=== PATIENT | female | born 1990 | race Two or more races ===

== ENCOUNTER 2018-10-17 20:43 | Emergency (ER) | payer MEDICAID ==
[~2018-10-17] VITALS: Ht 152.4 cm; Wt 72.9 kg
[2018-10-17] MEDS ORDERED: IPRATROPIUM BROMIDE (0.02%) 0.5MG/2.5ML NEB HHN STA (22:08)
[2018-10-17] MEDS ORDERED: PREDNISONE 20MG TABLET PO STA (22:08)
[2018-10-17] MEDS ORDERED: ALBUTEROL (0.083%) 2.5MG/3ML NEB HHN STA (22:08)
[2018-10-18] MEDS ORDERED: ALBUTEROL (0.083%) 2.5MG/3ML NEB HHN STA (00:05)
[2018-10-18 01:14] VITALS: BP 108/67
== END 2018-10-18 01:15 | disposition home or self-care (01) ==
LOC: ER 20:43
DX: O99.511 Diseases of the respiratory system complicating pregnancy, first trimester (principal); Z3A.11 11 weeks gestation of pregnancy
CPT/HCPCS: 36415; 76801; 84702; 94640; 94644; 99285; J7512; J7611

== ENCOUNTER 2020-02-23 02:46 | Emergency (ER) | payer MEDICAID ==
[~2020-02-23] VITALS: Ht 152.4 cm; Wt 68.0 kg
[2020-02-23] MEDS ORDERED: ALBUTEROL (0.5%) 2.5MG/0.5ML NEB HHN ONE (03:15)
[2020-02-23] MEDS ORDERED: ALBUTEROL (0.083%) 2.5MG/3ML NEB ONE (04:07)
[2020-02-23 05:48] VITALS: BP 126/76
== END 2020-02-23 05:51 | disposition home or self-care (01) ==
LOC: ER 02:46
DX: J45.901 Unspecified asthma with (acute) exacerbation (principal); Z98.890 Other specified postprocedural states
CPT/HCPCS: 94640; 99283; Z7610

== ENCOUNTER 2021-04-14 21:44 | Inpatient (IN) | payer MEDICAID, OTHER ==
[~2021-04-14] VITALS: Ht 152.4 cm; Wt 80.7 kg
[~2021-04-14 21:44] MED LIST: ALBU18HF2 IH; FLUT1DIS3 INH; P20 MT
[2021-04-14] MEDS ORDERED: METHYLPREDNISOLONE SOD SUCC 125 MG/2 ML VIAL IV STA (22:14)
[2021-04-14] MEDS ORDERED: IPRATROPIUM BROMIDE (0.02%) 0.5MG/2.5ML NEB HHN STA (22:14)
[2021-04-14] MEDS ORDERED: SODIUM CHLORIDE 0.9% 1000ML BAG (SEPSIS BOLUS) IV ONE (22:15)
[2021-04-14] MEDS ORDERED: ACETAMINOPHEN 325MG TABLET PO ONE (22:30)
[2021-04-14 23:12] LABS: BASOPHILS % 0.6 % (0.0-2.0); EOSINOPHILS % 9.1 % (0.0-5.0); HEMATOCRIT. 38.6 % (36.0-48.0); HEMOGLOBIN. 13.9 g/dL (12.0-16.0); LYMPHOCYTES % 27.5 % (20.0-50.0); MEAN CORPUSCULAR HEMOGLOBIN 31.2 pg (28.0-32.0); MEAN CORPUSCULAR VOLUME 86.9 fL (81.0-99.0); MONOCYTES % 6.3 % (2.0-8.0); NEUTROPHILS % 56.5 % (40.0-76.0); PLATELET 344 x1000/uL (130-400); RED BLOOD CELL COUNT 4.44 mill/uL (4.2-5.4); RED CELL DISTRIBUTION WIDTH 12.7 % (11.6-14.6)
[2021-04-14 23:15] LABS: CLARITY URINE CLEAR (CLEAR); COLOR URINE YELLOW (YELLOW); KETONES URINE NEGATIVE (NEGATIVE); LEUKOCYTE ESTERASE URINE NEGATIVE (NEGATIVE); NITRITE URINE NEGATIVE (NEGATIVE); OCCULT BLOOD URINE NEGATIVE (NEGATIVE); PH URINE 6.5 (4.5-8.0); PROTEIN URINE NEGATIVE (NEGATIVE); SPECIFIC GRAVITY URINE 1.024 (1.005-1.030)
[2021-04-14] MEDS: ALBUTEROL (0.083%) 2.5MG/3ML NEB HHN SCH ×2 (23:20→23:30)
[2021-04-14 23:23] LABS: PROTHROMBIN TIME 10.3 sec (9.6-11.0)
[2021-04-14 23:26] LABS: CHLORIDE 108 mEq/L (98-107)
[2021-04-14 23:45] LABS: HCG SCREEN NEGATIVE
[2021-04-15] MEDS ORDERED: ALBUTEROL (0.083%) 2.5MG/3ML NEB HHN STA (00:48)
[2021-04-15] MEDS ORDERED: PREDNISONE 10MG TABLET PO SCH (09:45)
[2021-04-15] MEDS: CETIRIZINE 10MG TABLET PO SCH (10:32)
[2021-04-15] MEDS: IPRATROPIUM/ALBUTEROL 0.5-3(2.5)MG/3ML NEB HHN SCH ×2 (12:10→18:00)
[2021-04-15] MEDS: METHYLPREDNISOLONE SOD SUCC 40 MG/ML VIAL IV SCH ×2 (13:16→22:55)
[2021-04-15] MEDS ORDERED: MONTELUKAST SODIUM 10MG TABLET PO SCH (17:00)
[2021-04-15] MEDS ORDERED: ONDANSETRON HCL 4MG/2ML INJ IV PRN (17:45)
[2021-04-15] MEDS ORDERED: FAMOTIDINE 20MG TABLET PO SCH (21:00)
[2021-04-16 01:00] VITALS: BP 102/90
[2021-04-16] MEDS ORDERED: IPRATROPIUM/ALBUTEROL 0.5-3(2.5)MG/3ML NEB HHN PRN (01:30)
[2021-04-16] MEDS ORDERED: FLUTICASONE/VILANTEROL 200-25 BLST.W.DEV ORI SCH (01:30)
[2021-04-16 04:00] VITALS: BP 106/47
[2021-04-16] MEDS: METHYLPREDNISOLONE SOD SUCC 40 MG/ML VIAL IV SCH ×2 (05:12→13:54)
[2021-04-16 08:00] VITALS: BP 102/55
[2021-04-16] MEDS ORDERED: BUDESONIDE 0.5MG/2ML NEB HHN SCH (09:00)
[2021-04-16] MEDS ORDERED: FAMOTIDINE 20MG TABLET PO SCH (09:00)
[2021-04-16] MEDS: CETIRIZINE 10MG TABLET PO SCH (09:22)
[2021-04-16] MEDS: IPRATROPIUM/ALBUTEROL 0.5-3(2.5)MG/3ML NEB HHN SCH ×2 (10:00→16:50)
[2021-04-16] MEDS ORDERED: P20 MT (11:45)
[2021-04-16] MEDS ORDERED: BENZ-16 MT (11:46)
[2021-04-16 12:00] VITALS: BP 109/57
[2021-04-16] MEDS ORDERED: GUAIFENESIN 200MG/10ML SUGAR FREE UDC PO PRN (13:15)
[2021-04-16 16:00] VITALS: BP 102/57
[2021-04-16 16:18] VITALS: BP 102/57
== END 2021-04-16 18:10 | disposition home or self-care (01) | DRG 133 ==
LOC: ER 21:44 → MICUSO 04-15 03:57 → 6EST 04-15 23:47
PROVIDERS: ADMIT Internal Medicine; ATTEND Internal Medicine
DX: J96.01 Acute respiratory failure with hypoxia (principal); E87.8 Other disorders of electrolyte and fluid balance, not elsewhere classified; J45.901 Unspecified asthma with (acute) exacerbation; E03.9 Hypothyroidism, unspecified; Z20.822 Contact with and (suspected) exposure to COVID-19; Z82.49 Family history of ischemic heart disease and other diseases of the circulatory system; Z82.5 Family history of asthma and other chronic lower respiratory diseases; Z98.891 History of uterine scar from previous surgery; Z79.899 Other long term (current) drug therapy
CPT/HCPCS: 36415; 71045; 80053; 81003; 83605; 84145; 84484; 84703; 85025; 93005; 94640; 99285; J2920; J2930; J7030; J7512; J7626; U0003; U0005

== ENCOUNTER 2021-05-25 20:16 | Emergency (ER) | payer MEDICAID ==
[~2021-05-25] VITALS: Ht 157.5 cm; Wt 78.2 kg
[~2021-05-25 20:16] MED LIST changes: +BENZ-16 MT
[2021-05-26] MEDS ORDERED: ALBUTEROL (0.083%) 2.5MG/3ML NEB HHN STA (01:02)
[2021-05-26] MEDS ORDERED: IPRATROPIUM BROMIDE (0.02%) 0.5MG/2.5ML NEB HHN STA (01:02)
[2021-05-26] MEDS ORDERED: DEXAMETHASONE 4MG TABLET PO ONE (01:15)
[2021-05-26] MEDS ORDERED: P20 MT (02:02)
[2021-05-26] MEDS ORDERED: ALBU18HF2 IH (02:02)
[2021-05-26 02:50] VITALS: BP 101/52
== END 2021-05-26 02:53 | disposition home or self-care (01) ==
LOC: ER 20:16
DX: J45.901 Unspecified asthma with (acute) exacerbation (principal); E05.90 Thyrotoxicosis, unspecified without thyrotoxic crisis or storm
CPT/HCPCS: 93005; 94640; 99283; J8540; Z7610